=== PATIENT | male | born 1965 | race Caucasian/White ===

== ENCOUNTER → 2024-06-01 06:31 | Day surgery (SDC) | payer OTHER, SELFPAY | LOC: GI 06:31 | PROVIDERS: ATTENDING PHYSICIAN Internal Medicine | DX: K57.30 Diverticulosis of large intestine without perforation or abscess without bleeding (principal); D49.0 Neoplasm of unspecified behavior of digestive system; D12.0 Benign neoplasm of cecum | CPT/HCPCS: 45380; 88305; 88342 ==

== ENCOUNTER → 2024-06-20 08:19 | Outpatient (REF) | payer OTHER, SELFPAY | LOC: HWRAD 08:19 | PROVIDERS: ATTENDING PHYSICIAN Internal Medicine; FAMILY PHYSICIAN Internal Medicine | DX: K56.1 Intussusception (principal); R10.30 Lower abdominal pain, unspecified | CPT/HCPCS: 74177; Q9967 ==